=== PATIENT | female | born 1985 | race Two or more races ===

== ENCOUNTER 2024-12-03 15:25 | Emergency (ER) | payer MEDICAID, SELFPAY ==
[2024-12-03 15:31] VITALS: BP 114/66; PULSE 100; RESP 16; TEMP 36.8; O2SAT 100; BMI 25.2
--- NOTE | 2024-12-03 15:56 | ED.ABDPAIN ---
HPI - Abdominal Pain General Time Seen by Provider: 15:56 Date Seen: 12/03/24 Chief Complaint: Abdominal Pain Stated Complaint: abdominal pain Time Seen by Provider: 12/03/24 15:46 Source: patient, family, RN notes reviewed and old records reviewed Mode of arrival: ambulatory Limitations: no limitations History of Present Illness HPI narrative: 39-year-old female who presents today with low abdominal pain, urinary frequency and dysuria, for the past several days. Pain was worse yesterday and today. Urinary frequency, pain is worse with urination. Says the pain sometimes goes into the rectum but does not have any pain with stooling. No vaginal bleeding or discharge. Subjective fever. No cough or runny nose. Took Naprosyn yesterday with some improvement. Related Data Home Medications ?Medication ?Instructions ?Recorded ?Confirmed No Known Home Medications 12/03/24 12/03/24 Allergies Allergy/AdvReac Type Severity Reaction Status Date / Time Penicillins Allergy rash Verified 12/03/24 15:36 PFSH PFSH Social History Smoking Status: Never smoker How often do you have a drink containing alcohol: never AUDIT-C Alcohol total score: 0 Non-prescribed substance use: denies use Exam Narrative: Exam Narrative: General: Well-developed and well-nourished, no acute distress Head: Atraumatic and normocephalic Eyes: Pupils are equal reactive, extraocular motions intact, conjunctiva clear ENT: External nose and ears are normal, posterior pharynx without erythema or exudate Neck: No midline cervical tenderness, full spontaneous range of motion the neck, trachea midline, no adenopathy Heart: Regular rate and rhythm no murmurs or thrills Lungs: Clear to auscultation bilaterally without wheezes or crackles Abdomen: Soft, nontender, nondistended with active bowel sounds Musculoskeletal: No tenderness, deformity, or edema Neurologic: Awake, alert, and oriented x3, no gross focal neurologic deficits, cranial nerves intact as tested Psych: Mood and affect are appropriate Skin: No rashes Const: Vital Signs, click to edit/add: Vital Signs - 24 hr 12/03/24 15:31 Temperature 98.2 F Pulse Rate [Left P ulse Oximeter] 100 Respiratory Rate 16 Blood Pressure [Ri ght Upper Arm] 114/66 Pulse Oximetry 100 Oxygen Delivery Me thod Room Air Course Course ED Course: Patient seen and examined, presents today with pelvic pain, dysuria, and malaise. On exam here, heart rate is slightly elevated but patient is afebrile, no abdominal tenderness. Consider urinary tract infection, also consider diverticulitis, colitis, or space-occupying lesion in the pelvis. Patient has no tenderness on exam. Labs are ordered along with Toradol and fluids, consider CT abdomen and pelvis depending on results of labs and clinical course in the department today. Reevaluation(s) Time of Reevaluation #1: 16:38 Reevaluation #1: Labs ordered and independently interpreted by me with normal CBC, urinalysis with 1+ blood but no evidence for infection. Given hematuria and urinary symptoms, CT is ordered to evaluate for possible kidney stone. Time of Reevaluation #2: 17:40 Reevaluation #2: CT scan of the abdomen pelvis and panel interpreted by me negative for acute findings, no evidence for kidney stone, obstruction. Radiology interpretation agrees. Patient is stable for discharge. No definite etiology for patient's symptoms found today. Patient does have some hematuria which could certainly cause dysuria and lower abdominal pain but no obvious source of this, no renal masses on noncontrast CT scan, no evidence for kidney stone, bladder wall thickening. No space-occupying masses in the abdomen or pelvis. Given symptoms, patient will be started on Keflex for possible urinary tract infection pending culture results, as well as Pyridium for symptom management. Follow up with primary care in 1 week. Did consider PID as well the patient has no abdominal tenderness, no vaginal discharge. Vital Signs Vital signs: Initial Vital Signs Temperature 98.2 F 12/03/24 15:31 Temperature Source Temporal Artery Scan 12/03/24 15:31 Pulse Rate 100 12/03/24 15:31 Respiratory Rate 16 12/03/24 15:31 Blood Pressure 114/66 12/03/24 15:31 Blood Pressure Mean 82 12/03/24 15:31 Blood Pressure Position Sitting 12/03/24 15:31 Pulse Oximetry 100 12/03/24 15:31 Oxygen Delivery Method Room Air 12/03/24 15:31 Vital Signs Temperature 98.2 F 12/03/24 15:31 Pulse Rate 100 12/03/24 15:31 Respiratory Rate 16 12/03/24 15:31 Blood Pressure 114/66 12/03/24 15:31 Pulse Oximetry 100 12/03/24 15:31 Oxygen Delivery Method Room Air 12/03/24 15:31 Temperature 98.2 F 12/03/24 15:31 Pulse Rate 100 12/03/24 15:31 Respiratory Rate 16 12/03/24 15:31 Blood Pressure 114/66 12/03/24 15:31 Pulse Oximetry 100 12/03/24 15:31 Oxygen Delivery Method Room Air 12/03/24 15:31 Medications Administered Medications: Discontinued Medications Generic Name Dose Route Start Last Admin Trade Name Stanley PRN Reason Stop Dose Admin Ketorolac Tromethamine 15 mg 12/03/24 15:58 12/03/24 16:15 Ketorolac 15 Mg/Ml Inj IVP 12/03/24 15:59 15 mg ONCE ONE Administration MDM - Abdominal Pain Lab Data Labs: Lab Results 12/03/24 12/03/24 12/03/24 Range/Units 15:40 15:58 16:15 WBC 8.74 (4.50-11.00) K/uL RBC 4.67 (4.00-5.20) m/uL Hgb 12.3 (12.0-16.0) gm/dL Hct 38.7 (33.0-51.0) % MCV 83 (80-100) fL MCH 26 (26-34) pg MCHC 32 (32-36) gm/dL RDW Coeff of [place] 13.8 (11.5-15.5) % Plt Count 415 (140-440) K/uL Neut % (Auto) 62.0 (42.0-72.0) % Lymph % (Auto) 29.3 (20-44) % [place] % (Auto) 7.2 (0.0-11.0) % Eos % (Auto) 1.1 (0.0-7.0) % Baso % (Auto) 0.2 (0.0-3.0) % Neut # (Auto) 5.41 (1.7-7.0) K/uL Lymph # (Auto) 2.56 (0.90-2.90) K/uL [place] # (Auto) 0.60 (0.00-0.90) K/UL Eos # (Auto) 0.10 (0.00-0.50) K/uL Baso # (Auto) 0.02 (0.00-0.30) K/uL Abs Immat Gran (auto) 0.02 (0.00-0.30) K/uL Imm/Tot Granulo (auto) 0.2 % Sodium 137 (135-149) mmol/L Potassium 4.5 (3.6-5.1) mmol/L Chloride 105 (96-114) mmol/L Carbon Dioxide 28 (20-32) mmol/L Anion Gap 4 L (7-15) mEq/L BUN 11 (5-24) mg/dL Creatinine 0.8 (0.5-1.5) mg/dL Estimated Creat Clear 88.38 Estimated GFR 96 ml/min Glucose 131 H (60-115) mg/dL Calcium 8.7 (8.4-10.6) mg/dL Urine Color Yellow (Yellow) Urine Appearance Clear (Clear) Urine pH 6.0 (5.0-8.5) Ur Specific [place] 1.025 (1.000-1.030) Urine Protein Negative (Negative) Urine Glucose (UA) Negative (Negative) Urine Ketones Negative (Negative) Urine Blood 1+ A (Negative) Urine Nitrite Negative (Negative) Urine Bilirubin Negative (Negative) Urine Urobilinogen 0.2 (0.2-1.0) Ur Leukocyte Esterase Negative (Negative) Urine RBC 2-5 A (0-2) Urine WBC 0-2 (0-5) Ur Squamous Epith Cells Few (None-Few) Urine Bacteria None (None) Urine HCG, Qual Negative (Negative) Discharge Plan Discharge Clinical Impression: Dysuria, Hematuria, microscopic Patient Disposition: Home, Self-Care Instructions: Hematuria (ED), Dysuria (ED) Additional Instructions: Take medications as prescribed Follow-up with your primary care provider in 7-10 days for recheck and possible Urology referral Activity Level: Activity as Tolerated Discharge Diet: Regular Prescriptions: No Action No Known Home Medications Follow Up/Referrals: Provider,Not a Local [Primary Care Provider] - Stand Alone Forms: [employer] Info Instructions
[2024-12-03 15:58] LABS: Appearance Urine Clear (Clear); Bilirubin Urine Negative (Negative); Blood Urine 1+ (Negative); Color Urine Yellow (Yellow); Glucose Urine Negative (Negative); Ketones Urine Negative (Negative); Leukocyte Esterase Urine Negative (Negative); Nitrite Urine Negative (Negative); Protein Urine Negative (Negative); Specific Gravity Urine 1.025 (1.000-1.030); Urobilinogen Urine 0.2 (0.2-1.0)
[2024-12-03 16:02] LABS: Squamous Epithelial Cell Urine Few (None-Few); WBC Urine 0-2 (0-5)
--- OUTSIDE RECORDS SUMMARY | 2024-12-03 16:09 | XMS_ITS | Clinical Summary ---
Author Organization [facility] Address [address] [place] [address] Care Team Providers Care Telephone Operator Receptionist Name Role Phone Unavailable Primary Care Provider Unavailabl e Source Comments PLEASE NOTE, if this patient is a minor, it may be UNLAWFUL to discuss sensitive information that is contained in these records (such as FAMILY PLANNING, MENTAL HEALTH or SUBSTANCE ABUSE) with the minor patient's parent or other person without the patient's specific authorization.[facility] Allergies No known active allergies Medications No known medications Active Problems No known active problems Social History Tobacco Use Types Packs/Day Years Used Date Smoking Tobacco: Never Smokeless Tobacco: Never Tobacco Cessation:Counseling Given: Not Answered Social Connections Answer Date Recorded Connectedness 0 08/13/2024 Financial Resource Strain Answer Date R ecorded Financial Resource Strain 0 2023 Stress Answer Date Recorded Stress 0 12/29/2023 Physical Activity Answer Date Recorded Physical Activity 0 12/29/2023 Food Insecurity Answer Date Recorded Food 0 08/11/2024 Transportation Needs Answer Date Record ed Transportation 0 12/29/2023 Housing Stability Answer Date Recorded Housing 0 12/29/2023 Safety and Environment Answer Date Radames rded Safety 0 12/29/2023 Utilities Answer Date Recorded Utilities 0 12/29/2023 Employment Answer Date Recorded Stress 0 08/13/2024 Comments Unknown Sex and Gender Information Value Date Recorded Sex Assigned at Female 12/29/2023 1:08 PM PST Legal Sex Female 1:04 PM PST Gender Identity Female 12/29/2023 1:08 PM PST Sexual Orientation Straight 12/29/2023 1: 08 PM PST Last Filed Vital Signs Vital Sign Reading Time Taken Comments Blood Pressure 114/69 01/05/2024 3:02 PM MSW Pulse 93 01/05/2024 3:02 PM MSW Temperature - - Respiratory Rate - - Oxygen Saturation - - Inhaled Oxygen Concentration - - Weight - - Height - - Body Mass Index - - Plan of Treatment Health Maintenance Due Date Last Done Comments Dental Prophy 1985 Diabetes Screening 1985 HPV Screening 1985 Hepatitis C Screening 1985 Pap + HPV 1985 HIV Screening 2000 Relationship Safety Screening/Counseling 2000 Annual Preventive Care Visit 2003 Cervical Cancer Screening 2006 Pap Smear 2006 [id number] ( season) 2024 023 Imm-Influenza (#1) 2024 09/07/2023 Alcohol and Drug Screen 11/16/2024 Depression Annual Screen 11/16/2024 Tobacco Screening 01/05/2025 01/05/2024 Hypertension Screening (#1) 01/04/2027 Imm-DTaP/Tdap/Td (6 - Td or Tdap) 07/08/2033 07/08/2023, 01/04/1987, 01/05/1986, Additional history exists Imm-Hepatitis B Completed 09/07/2023, 12/18, 1985, Additional history exists Cervical Ablation/Cold-Knife Conization Discontinued Cervical Cryotherapy Discontinued Colposcopy Discontinued Endometrial Biopsy Discontinued Excision/Leep Discontinued HPV Genotyping Discontinued Vaginal Pap Discontinued Vulvoscopy Discontinued Insurance [facility] MEDICAID [facility] MEDICAID Member Subscriber Plan / Payer (Ef fective 2024-Present) Name:Jacqueline Graff Relation to Subscriber:Self Name:Jacqueline Graff Payer ID:[id number] Type:Medicaid Address: [address] [address]
[2024-12-03] MEDS: KETOROLAC 15 MG/ML inj IVP (16:15)
[2024-12-03 16:20] VITALS: BP 120/79; PULSE 98; RESP 14; O2SAT 100
[2024-12-03 16:20] LABS: Ur HCG Qualitative* Negative (Negative)
[2024-12-03 16:23] LABS: Basophils Absolute Auto 0.02 K/uL (0.00-0.30); Basophils Percent Auto 0.2 % (0.0-3.0); Eosinophils Percent Auto 1.1 % (0.0-7.0); Hematocrit 38.7 % (33.0-51.0); Hemoglobin* 12.3 gm/dL (12.0-16.0); Immature Granulocytes Abs Auto 0.02 K/uL (0.00-0.30); Immature Granulocytes Pct Auto 0.2 %; Lymphocytes Absolute Auto 2.56 K/uL (0.90-2.90); Lymphocytes Percent Auto 29.3 % (20-44); Mean Corpuscular HGB Conc 32 gm/dL (32-36); Mean Corpuscular Hemoglobin 26 pg (26-34); Mean Corpuscular Volume 83 fL (80-100); Monocytes Percent Auto 7.2 % (0.0-11.0); Neutrophils Absolute Auto 5.41 K/uL (1.7-7.0); Platelet Count* 415 K/uL (140-440); RDW Coefficient of Variation % 13.8 % (11.5-15.5); Red Blood Count 4.67 m/uL (4.00-5.20); White Blood Count* 8.74 K/uL (4.50-11.00)
[2024-12-03 16:26] LABS: Slide Review Reflex No
[2024-12-03 16:37] LABS: Chloride* 105 mmol/L (96-114); Potassium* 4.5 mmol/L (3.6-5.1); Sodium* 137 mmol/L (135-149)
--- NOTE | 2024-12-03 16:39 | CRLHL7_ITS ---
For Patients: As a result of the Century Cures Act, medical imaging exams and procedure reports are released immediately into your electronic medical record. You may view this report before your referring provider. If you have questions, please contact your health care provider. INDICATION: Dysuria. Hematuria. Suprapubic pain. TECHNIQUE: Noncontrast CT scan of the abdomen and pelvis. FINDINGS: The lung bases are unremarkable. No focal abnormalities identified in the visualized portions of the liver, spleen, pancreas, adrenal glands, and kidneys. No hydronephrosis. No uroliths. The GI tract is incompletely distended but shows no gross abnormalities. Normal appendix. No retroperitoneal, pelvic sidewall, or mesenteric adenopathy. Impression : 1. No acute abnormalities of the abdomen or pelvis identified. No hydronephrosis. No uroliths. Dictated by Tomas Nunez MD @ 12/03/2024 5:18:49 PM Please note that all CT scans at this facility use dose modulation, iterative reconstruction, and/or weight-based dosing when appropriate to reduce radiation dose to as low as reasonably achievable. Dictated by: Tomas Nunez MD @ 12/03/2024 17:18:58 (Electronically Signed)
[2024-12-03 16:40] LABS: Anion Gap 4 mEq/L (7-15); Blood Urea Nitrogen* 11 mg/dL (5-24); Calcium* 8.7 mg/dL (8.4-10.6); Carbon Dioxide* 28 mmol/L (20-32); Creatinine* 0.8 mg/dL (0.5-1.5); Est. Creatinine Clearance* 88.38; Estimated Glomerular Filt Rate 96 ml/min; Glucose* 131 mg/dL (60-115)
[2024-12-03 18:02] VITALS: BP 103/70; PULSE 98; RESP 14; O2SAT 100
[2024-12-03 18:09] VITALS: BP 114/66; PULSE 100; RESP 14; TEMP 36.8
== END 2024-12-03 18:09 | disposition home or self-care (01) ==
PROVIDERS: Emergency Provider Family Medicine
DX: R30.0 Dysuria (principal); R31.29 Other microscopic hematuria
CPT/HCPCS: 36415; 74176; 80048; 81001; 81003; 81025; 85025; 96374; 99284; J1885

== ENCOUNTER 2024-12-13 13:34 | Outpatient (CLI) | payer MEDICAID, SELFPAY | END 2024-12-13 13:35 | disposition home or self-care (01) | LOC: NFLDREF 13:35 | PROVIDERS: Visit Provider Registered Nurse | DX: N92.0 Excessive and frequent menstruation with regular cycle (principal) | CPT/HCPCS: 84443 ==

== ENCOUNTER 2024-12-30 10:21 | Outpatient (CLI) | payer MEDICAID, SELFPAY | END 2024-12-30 10:22 | disposition home or self-care (01) | LOC: US 10:23 | PROVIDERS: Visit Provider Registered Nurse | DX: N92.0 Excessive and frequent menstruation with regular cycle (principal) | CPT/HCPCS: 76830; 76856; T1013 ==

== ENCOUNTER 2025-06-08 11:30 | Outpatient (CLI) | payer MEDICAID, SELFPAY | END 2025-06-08 11:31 | disposition home or self-care (01) | PROVIDERS: PCP Family Medicine; Visit Provider Family Medicine | DX: R10.13 Epigastric pain (principal) | CPT/HCPCS: 80053; 82150; 83690; T1013 ==

== ENCOUNTER 2025-06-26 07:21 | Outpatient (CLI) | payer MEDICAID, SELFPAY ==
[2025-06-26 07:51] LABS: Ur HCG Qualitative* Negative (Negative)
--- NOTE | 2025-06-26 08:28 | P.ANES_ITS ---
Anesthesia Charges Start Date/Time Anesthesia Start Date: 06/26/25 Anesthesia Start Time: 08:08 Stop Date/Time Anesthesia Stop Date: 06/26/25 Anesthesia Stop Time: 08:30 Coding CPT Codes CPT Codes: ANES UPR GI NDSC PX NOS - 81756 ([id number]) QK - CONCRETE PLACEMENT EQUIPMENT OPERATOR 2-4 CNCRNT ANES PROC, QX - STRAIGHTENING PRESS OPERATOR HELPER SVC W/ MED DIRECTION
--- NOTE | 2025-06-26 08:28 | W.ANESCHARGE ---
Anesthesia Charges Start Date/Time Anesthesia Start Date: 06/26/25 Anesthesia Start Time: 08:08 Stop Date/Time Anesthesia Stop Date: 06/26/25 Anesthesia Stop Time: 08:30 Coding CPT Codes CPT Codes: ANES UPR GI NDSC PX NOS - 64682 ([id number]) QK - RATOPRINTER 2-4 CNCRNT ANES PROC, QX - ENROLLMENT ELIGIBILITY REPRESENTATIVE SVC W/ MED DIRECTION
--- NOTE | 2025-06-26 08:37 | P.ANES_ITS ---
Anesthesia Charges Start Date/Time Anesthesia Start Date: 06/26/25 Anesthesia Start Time: 08:08 Stop Date/Time Anesthesia Stop Date: 06/26/25 Anesthesia Stop Time: 08:30 Coding CPT Codes CPT Codes: ANES UPR GI NDSC PX NOS - 63360 ([id number]) P1 - NORMAL HEALTHY PATIENT, QX - POOL TABLE OPERATOR ARTURO W/ MED DIRECTION, QK - CESSATION SYSTEMS OUTREACH SPECIALIST 2-4 CNCRNT ANES PROC
--- NOTE | 2025-06-26 08:37 | W.ANESCHARGE ---
Anesthesia Charges Start Date/Time Anesthesia Start Date: 06/26/25 Anesthesia Start Time: 08:08 Stop Date/Time Anesthesia Stop Date: 06/26/25 Anesthesia Stop Time: 08:30 Coding CPT Codes CPT Codes: ANES UPR GI NDSC PX NOS - 58029 ([id number]) P1 - NORMAL HEALTHY PATIENT, QX - COMMERCIAL STRIPPER ARTURO W/ MED DIRECTION, QK - DRAFTING CLERK 2-4 CNCRNT ANES PROC
== END 2025-06-26 07:22 | disposition home or self-care (01) ==
LOC: OP CLINIC 07:21
PROVIDERS: PCP Family Medicine; Visit Provider Surgery
DX: K21.9 Gastro-esophageal reflux disease without esophagitis (principal); K44.9 Diaphragmatic hernia without obstruction or gangrene; K31.89 Other diseases of stomach and duodenum
CPT/HCPCS: 00731; 43239; 81025; 84702; 88305; T1013; J2704